=== PATIENT | female | born 1950 | race Caucasian/White ===

== ENCOUNTER 2017-04-14 12:45 | Day surgery (SDC) | payer MEDICARE, OTHER ==
[2017-03-31 13:22] VITALS: BMI 23.2
[2017-04-14] MEDS ORDERED: Etomidate 20 mg/10ml Inj IV ONE ×2 (13:42→13:56)
[2017-04-14] MEDS ORDERED: Lidocaine 1% Inj (20ml) ONE (13:42)
[2017-04-14] MEDS ORDERED: Sodium Chloride 0.9% 1,000 ML IV SCH (14:15)
[2017-04-14 14:40] VITALS: RESP 16
[2017-04-14 14:49] VITALS: PULSE 74
[2017-04-14 15:35] VITALS: BP 122/77; TEMP 98.1; O2SAT 99
== END 2017-04-14 15:49 | disposition home or self-care (01) ==
LOC: ENDO 12:45
PROVIDERS: ATTEND Internal Medicine Gastroenterology
DX: Z12.11 Encounter for screening for malignant neoplasm of colon (principal); K57.30 Diverticulosis of large intestine without perforation or abscess without bleeding; K64.8 Other hemorrhoids
CPT/HCPCS: 45378; J7040 ×2

== ENCOUNTER 2018-08-26 09:39 | Outpatient (CLI) | payer MEDICARE | END 2018-08-26 09:40 | disposition home or self-care (01) | LOC: RAD 09:39 | DX: Z12.31 Encounter for screening mammogram for malignant neoplasm of breast (principal); R10.9 Unspecified abdominal pain ==